=== PATIENT | male | born 1985 | race American Indian/Alaskan Native ===

== ENCOUNTER 2017-12-29 21:27 | Inpatient (IN) | payer OTHER ==
[2017-12-29 21:55] VITALS: O2SAT 98
--- NOTE | 2017-12-29 22:12 | C.PDOC ---
History Of Present Illness 32 year old male presents to the ER as a transfer accepted for psychiatric admission for depression. Denies any complaints at this time. Time Seen by Provider: 12/29/17 21:29 Chief Complaint (Nursing): Psychiatric Evaluation History Per: Other ([facility]) History/Exam Limitations: no limitations Onset/Duration Of Symptoms: Days Current Symptoms Are (Timing): Still Present Modifying Factor(s): None Severity: None Associated Symptoms: Depression Involuntary Hold By: None Recent travel outside of the [place]: No Past Medical History Reviewed: Historical Data, Nursing Documentation, Vital Signs Vital Signs: Last Vital Signs Temp 98.8 F 12/29/17 21:45 Pulse 66 12/29/17 21:45 Resp 22 12/29/17 21:45 BP 113/74 12/29/17 21:45 Pulse Ox 98 12/29/17 21:45 - Medical History PMH: Depression Denies: Chronic Kidney Disease Family History: States: Unknown Family Hx - Social History Hx Alcohol Use: Yes Hx Substance Use: Yes - Immunization History Hx Tetanus Toxoid Vaccination: No Hx Influenza Vaccination: No Hx Pneumococcal Vaccination: No Review Of Systems Constitutional: Negative for: Fever, Chills Cardiovascular: Negative for: Chest Pain, Palpitations Respiratory: Negative for: Cough, Shortness of Breath Gastrointestinal: Negative for: Nausea, Vomiting Neurological: Negative for: Weakness, Numbness Psych: Positive for: Depression Physical Exam - Physical Exam Appears: Non-toxic Skin: Normal Color, Warm, Dry Head: Atraumatic, Normacephalic Eye(s): bilateral: Normal Inspection Oral Mucosa: Moist Neck: Normal, Supple Chest: Symmetrical, No Tenderness Cardiovascular: Rhythm Regular Respiratory: Normal Breath Sounds, No Rales, No Rhonchi, No Wheezing Gastrointestinal/Abdominal: Soft, No Tenderness Neurological/Psych: Oriented x3, Normal Speech ED Course And Treatment O2 Sat by Pulse Oximetry: 98 (Room air) Pulse Ox Interpretation: Normal Medical Decision Making Medical Decision Making: mediclaly cleared and accpeted prior to arrival. no current medical complaint Disposition - Disposition Disposition: HOSPITALIZED Disposition Time: 22:00 Condition: STABLE - Clinical Impression Clinical Impression: Depression - Scribe Statement The provider has reviewed the documentation as recorded by the Scribe Brent Torre All medical record entries made by the Scribe were at my direction and personally dictated by me. I have reviewed the chart and agree that the record accurately reflects my personal performance of the history, physical exam, medical decision making, and the department course for this patient. I have also personally directed, reviewed, and agree with the discharge instructions and disposition. Decision To Admit - Pt Status Changed To: Hospital Disposition Of: Inpatient - Admit Certification Admit to Inpatient:: After my assessment, the patient will require hospitalizat ion for at least two midnights. This is because of the severity of symptoms shown, intensity of services needed, and/or the medical risk in this patient being treated as an outpatient. - InPatient: Physician Admission Certification: I certify that this patient requires 2 or more midnights of care for the following reason:: depressed - . Bed Request Type: Psychiatry Admitting Physician: Judson Lemus Patient Diagnosis: Depression
--- NOTE | 2017-12-29 22:46 | PCM.BM ---
<Glenny Segovia - Last Filed: 12/29/17 22:44> Treatment Plan Problems - Problems identified on initial assessmt Depression Date Initiated: 12/29/17 Time Initiated: 22:45 Assessment reference: NA Status: Active Substance Abuse Date Initiated: 12/29/17 Time Initiated: 22:45 Assessment reference: NA Status: Active Treatment assets and liabiliti Patient Assests: adapts well, cooperative, educated, self-reliant, ADL independent, physically healthy, negotiates basic needs, cognitively intact Patient Liabilities: live alone (Homeless), financial problems, substance abuse (PCP, THC), medical problems (None) - Milieu Protocol Maintain good personal hygiene: daily Encourage regular showers, daily Remind patient to perform daily oral care, daily Assist patient to perform ADL's (Self) Conduct patient checks and document Observation sheet: Q15 minutes (Safety) Maintain personal safety: every shift Educate patient to report safety concerns to staff, every shift Monitor environment for contraband/sharps Medication safety: Monitor for expected outcome, potential side effects: every shift, Assess barriers to learning: every shift, Assess readiness for medication education: every shift <Donna Kelly - Last Filed: 01/02/18 14:26> Family Contact Family involvement: Family/SO is involved Family contact: Patient agrees to contact, Family has been contacted by patient - Goals for Treatment Patient goals for treatment: "I want to go to a rehab program." Discharge/Continuing Care - Education Needs Education Needs: Patient Medication, Patient Diagnosis/Disease Process, Patient Coping Skills, Patient Placement options, Patient Community resources - Discharge Discharge Criteria: Free of Suicidal thoughts, Free of Homicidal thoughts, Free of paranoid thoughts, Normal sleep pattern, Ability to care for self, No longer exhibiting s/s of withdrawal, Reduction of target symptoms Discharge to:: Substance Abuse Rehab - Treatment Team Participation Discussed with Family/SO: No Was Patient/Family/SO present at Treatment Team Meeting: Yes <Sherice Araujo - Last Filed: 01/05/18 12:51> - Diagnosis (1) Depression Status: Acute Interventions: 01/02/18 12:51 * Assess/adjust medications daily and /or as needed * See patient on an individual basis 7x/week to assess symptoms of depression * Monitor for side effects & effectiveness of medications *
--- NOTE | 2017-12-30 10:47 | PCM.PSYCH ---
Initial Psychiatric Evaluation - Initial Psychiatric Evaluation Type of Admission: Voluntary Legal Status: Capacity Chief Complaint (in patient's own words): I was feeling depressed and suicidal.' History of Present Illness and Precipitating Events: Patient is a 30 years old -[place] male, who is currently unemployed and homeless, went to the [facility] with depressed mood and suicidal ideation and homicidal ideation. The patient was transferred to the [facility] for the continuation of care. He remained superficially cooperative but guarded about the details. Patient reports that he is feeling increasingly depressed and suicidal. Per hospital charts, he claimed that" if he had a knife and gun, he would stab and shoot anyone infront of him." Patient reports history of few inpatient psychiatric hospitalizations. However he denies history of follow-up with psychiatrist. He reports history of suicidal ideation in the past but denies attempt. As per him, he abused few tab of Ecstacy. He also reports of drinking a few shots of vodka daily. As per him, he started hearing voices and became increasingly depressed and came to the hospital to get help. He reports depressed mood and feelings of hopelessness and helplessness. He reports at times irritability and agitation. He reports auditory hallucinations but denies any visual hallucinations. Denies any drinking and other other drug abuse. PMH Non reported Current Medications: Active Medications Generic Name Dose Route Start Last Admin Trade Name Freq PRN Reason Stop Dose Admin Hydroxyzine HCl 25 mg 12/29/17 23:19 Atarax PO Q6 PRN Anxiety Past Psychiatric History - Past Psychiatric History Previous Treatment History: None Pertinent Medical Hx (Current Medical&Sleep Prob, Allergies): Allergies Allergy/AdvReac Type Severity Reaction Status Date / Time No Known Allergies Allergy Verified 12/29/17 21:56 No Known Home Med 12/29/17 Review of Systems - Review of Systems All systems: reviewed and no additional remarkable complaints except - Psychiatric Psychiatric: Anxiety, Irritability, Suicidal Ideation Mental Status Examination - Personal Presentation Personal Presentation: Looks stated age - Affect Affect: Constricted, Depressed - Motor Activity Motor Activity: Calm - Reliability in Providing Information Reliability in Providing Information: Fair - Speech Speech: Organized - Mood Mood: Depressed, Anxious - Formal Thought Process Formal Thought Process: Hallucinations, Delusions, Paranoia - Obsessions/Compulsions Obsessions: No Compulsions: No - Cognitive Functions Orientation: Person, Place, Situation, Time Sensorium: Alert Attention/Concentration: Attentive Abstract Thinking: [place] Estimate of Intelligence: Below average Judgement: Imparied, as evidence by: Poor judgement, Imparied, as evidence by: Lack of insight into illness - Risk Risk: Suicidal, Diminished functioning - Limitations Limitations: Living alone DSM 5 DX - DSM 5 DSM 5 Diagnosis: Bipolar disorder MRE depressed severe with psychotic features Ecstasy use disorder moderate Alcohol use disorder moderate - Recommended/Plan of Treatment Treatment Recommendations and Plan of Treatment: Bipolar disorder MRE depressed severe with psychotic features CBT Psychoeducation Supportive therapy, group therapy, individual therapy Trazodone 100 mg by mouth daily at bedtime Hydroxyzine 25 mg by mouth every 6 hours when necessary Depakote 500 mg by mouth twice a day Ecstasy use disorder moderate Monitor signs and symptoms Use [place] for abstinence Alcohol use disorder moderate Monitor signs and symptoms Use LA for abstinence - Smoking Cessation Smoking Cessation Initiated: No
[2017-12-30] MEDS: Divalproex 250 mg DR Tab PO SCH ×2 (11:42→17:16)
--- NOTE | 2017-12-31 10:30 | PCM.PYCHPN ---
Psychiatric Progress Note - Psychiatric Progress Note Patient seen today, length of contact: 15 min Patient Chief Complaint: I'm still feeling down.' Problems Identified/Issues Discussed: Patient seen and evaluated, chart reviewed and discussed with the nurse. Patient reports depressed mood and at times feelings of hopelessness and helplessness. As per the staff patient remained isolated and withdrawn. Patient still reports persecutory delusions and auditory hallucinations. He is taking the medications and denies any side effects. Symptoms are improving and she needs more time for stabilization Supportive therapy and psychoeducation were given. Medication Change: Yes Medical Record Reviewed: Yes Mental Status Examination - Cognitive Function Orientation: Person, Place, Situation, Time Memory: Intact Attention: WNL Concentration: Poor Association: WNL Fund of Knowledge: Poor - Mood Mood: Depressed, Anxious - Affect Affect: Constricted, Depressed - Speech Speech: Soft - Formal Thought Process Formal Thought Process: No Impairment - Suicidal Ideation Suicidal Ideation: No - Homicidal Ideation Homicidal Ideation: No Goal/Treatment Plan - Goal/Treatment Plan Need for Continued Stay: Severe depression anxiety, Severe functional impairment Progress Toward Problem(s) and Goals/Treatment Plan: Bipolar disorder MRE depressed severe with psychotic features CBT Psychoeducation Supportive therapy, group therapy, individual therapy Trazodone 100 mg by mouth daily at bedtime Hydroxyzine 25 mg by mouth every 6 hours when necessary Depakote 500 mg by mouth twice a day Ecstasy use disorder moderate Monitor signs and symptoms Use [place] for abstinence Alcohol use disorder moderate Monitor signs and symptoms Use [place] for abstinence - Smoking Cessation Smoking Cessation Initiated: No
[2017-12-31] MEDS: Divalproex 250 mg DR Tab PO SCH ×2 (10:35→17:20)
[2018-01-01] MEDS: Divalproex 250 mg DR Tab PO SCH ×2 (10:01→17:41)
--- NOTE | 2018-01-01 14:12 | PCM.PYCHPN ---
Psychiatric Progress Note - Psychiatric Progress Note Patient seen today, length of contact: 15 min Patient Chief Complaint: I'm feeling little better.' Problems Identified/Issues Discussed: Patient seen and evaluated, chart reviewed and discussed with the nurse. Patient reports some improvement in his mood mood and feelings of hopelessness and helplessness. As per the staff patient remained isolated and withdrawn. Patient reports some improvement in his paranoia and auditory hallucinations. He is taking the medications and denies any side effects. Symptoms are improving and he needs more time for stabilization Supportive therapy and psychoeducation were given. Medication Change: Yes Medical Record Reviewed: Yes Mental Status Examination - Cognitive Function Orientation: Person, Place, Situation, Time Memory: Intact Attention: WNL Concentration: Poor Association: WNL Fund of Knowledge: Poor - Mood Mood: Depressed, Anxious - Affect Affect: Constricted, Depressed - Speech Speech: Soft - Formal Thought Process Formal Thought Process: No Impairment - Suicidal Ideation Suicidal Ideation: No - Homicidal Ideation Homicidal Ideation: No Goal/Treatment Plan - Goal/Treatment Plan Need for Continued Stay: Severe depression anxiety, Severe functional impairment Progress Toward Problem(s) and Goals/Treatment Plan: Bipolar disorder MRE depressed severe with psychotic features CBT Psychoeducation Supportive therapy, group therapy, individual therapy Trazodone 100 mg by mouth daily at bedtime Hydroxyzine 25 mg by mouth every 6 hours when necessary Depakote 500 mg by mouth twice a day Ecstasy use disorder moderate Monitor signs and symptoms Use [place] for abstinence Alcohol use disorder moderate Monitor signs and symptoms Use [place] for abstinence
[2018-01-02] MEDS: Divalproex 250 mg DR Tab PO SCH (09:43)
--- NOTE | 2018-01-02 14:28 | PCM.PYCHPN ---
Psychiatric Progress Note - Psychiatric Progress Note Patient seen today, length of contact: 15 min Patient Chief Complaint: "I'm better" Problems Identified/Issues Discussed: The pt is seen, chart reviewed, case discussed with staff. Support and psychoeducation given, CBT and FL used briefly No new symptoms reported, improving slowly Depakote stopped (no need) - will only use seroquel He agreed No haldol prn - he is a calm patient No SEs from medications, risks discussed. After care discussed Medication Change: Yes (see hpi) Medical Record Reviewed: Yes Mental Status Examination - Cognitive Function Orientation: Person, Place, Situation, Time Memory: Intact Attention: WNL Concentration: WNL Association: WNL Fund of Knowledge: Poor - Mood Mood: Depressed, Anxious - Affect Affect: Constricted, Depressed - Speech Speech: Soft - Formal Thought Process Formal Thought Process: No Impairment - Suicidal Ideation Suicidal Ideation: No - Homicidal Ideation Homicidal Ideation: No Goal/Treatment Plan - Goal/Treatment Plan Need for Continued Stay: Severe depression anxiety, Severe functional impairment Progress Toward Problem(s) and Goals/Treatment Plan: Continue medications Support and psychoeducation daily Attend groups and activities daily After care planning by RADHA
[2018-01-02] MEDS ORDERED: Pneumococcal 23-Valent Vaccine IM ONE (16:00)
[2018-01-02] MEDS ORDERED: Influenza Vaccine 60 MCG/0.5 ML SYR (3 yr & up) IM ONE (16:00)
[2018-01-02] MEDS: Benzocaine/Menthol (Cepacol) Lozenge MT PRN (21:06)
[2018-01-03] MEDS: guaiFENesin 200 mg/10 ml Syrup UD PO PRN ×2 (11:53→18:44)
[2018-01-03] MEDS: Benzocaine/Menthol (Cepacol) Lozenge MT PRN ×2 (11:54→18:44)
--- NOTE | 2018-01-03 13:19 | PCM.PYCHPN ---
Psychiatric Progress Note - Psychiatric Progress Note Patient seen today, length of contact: 15 min Patient Chief Complaint: "I'm better" Problems Identified/Issues Discussed: The pt is seen, chart reviewed, case discussed with staff. Support and psychoeducation given, CBT and [place] used briefly No new symptoms reported, improving slowly Depakote stopped (no need) - will only use seroquel He agreed No haldol prn - he is a calm patient No SEs from medications, risks discussed. After care discussed Medication Change: Yes (see hpi) Medical Record Reviewed: Yes Mental Status Examination - Cognitive Function Orientation: Person, Place, Situation, Time Memory: Intact Attention: WNL Concentration: WNL Association: WNL Fund of Knowledge: Poor - Mood Mood: Depressed, Anxious - Affect Affect: Constricted, Depressed - Speech Speech: Soft - Formal Thought Process Formal Thought Process: No Impairment - Suicidal Ideation Suicidal Ideation: No - Homicidal Ideation Homicidal Ideation: No Goal/Treatment Plan - Goal/Treatment Plan Need for Continued Stay: Severe depression anxiety, Severe functional impairment Progress Toward Problem(s) and Goals/Treatment Plan: Continue medications Support and psychoeducation daily Attend groups and activities daily After care planning by RADHA
[2018-01-04] MEDS: guaiFENesin 200 mg/10 ml Syrup UD PO PRN ×2 (17:26→21:24)
[2018-01-04] MEDS: Benzocaine/Menthol (Cepacol) Lozenge MT PRN (17:26)
--- NOTE | 2018-01-04 23:44 | PCM.PYCHPN ---
Psychiatric Progress Note - Psychiatric Progress Note Patient seen today, length of contact: 15 min Patient Chief Complaint: I have sore throat. Otherwise I'm feeling better. Problems Identified/Issues Discussed: Patient seen, chart reviewed, case discussed with the staff. Issues related to illness and treatment were discussed with the patient and staff. Reported compliant with treatment with no adverse effects. Tolerating treatment very well. Reported having sore throat but otherwise feeling better. Awake, alert and oriented x3. Calm and cooperative with good eye contact. Mood reported as depressed. Affect appropriate. Treatment discussed with the patient. Needs more time for stabilization. Aftercare discussed with the patient. Denied any delusions, auditory or visual hallucinations, suicidal ideations or homicidal ideations at the time of evaluation. Medical Problems: None reported Diagnostic Results: Reviewed DSM 5 Symptoms Update: Some improvement with treatment Medication Change: No Medical Record Reviewed: Yes Mental Status Examination - Cognitive Function Orientation: Person, Place, Situation, Time Memory: Intact Attention: WNL Concentration: WNL Association: WNL Fund of Knowledge: [facility] Decription of patient's judgement and insights: Fair - Mood Mood: Depressed (Much less than before) - Affect Affect: Other (Appropriate) - Speech Speech: Soft - Formal Thought Process Formal Thought Process: No Impairment Psychotic Thoughts and Behaviors: None - Suicidal Ideation Suicidal Ideation: No - Homicidal Ideation Homicidal Ideation: No Goal/Treatment Plan - Goal/Treatment Plan Need for Continued Stay: Remain at risks for inpatient hospitalization, Discharge may exacerbated symptoms, Severe functional impairment Progress Toward Problem(s) and Goals/Treatment Plan: Improving with treatment. Patient/staff education. Supportive therapy. Continue treatment as before. Estimated Date of D/C: 01/06/18 - Smoking Cessation Smoking Cessation Initiated: No
[2018-01-05 09:45] VITALS: RESP 20
[2018-01-05] MEDS: guaiFENesin 200 mg/10 ml Syrup UD PO PRN (21:18)
--- NOTE | 2018-01-05 21:26 | PCM.PYCHPN ---
Psychiatric Progress Note - Psychiatric Progress Note Patient seen today, length of contact: 15 min Patient Chief Complaint: I'm feeling little better. Problems Identified/Issues Discussed: Patient seen, chart reviewed, case discussed with the staff. Issues related to illness and treatment were discussed with the patient and staff. Reported compliant with treatment with no adverse effects. Tolerating treatment very well. Reported feeling little better. He also has less sore throat. Awake, alert and oriented x3. Calm and cooperative with good eye contact. Mood reported as less depressed. Affect appropriate. Treatment discussed with the patient. Needs more time for stabilization. Aftercare discussed with the patient. Denied any delusions, auditory or visual hallucinations, suicidal ideations or homicidal ideations at the time of evaluation. Medical Problems: None reported Diagnostic Results: Reviewed DSM 5 Symptoms Update: Some improvement with treatment Medication Change: No Medical Record Reviewed: Yes Mental Status Examination - Cognitive Function Orientation: Person, Place, Situation, Time Memory: Intact Attention: WNL Concentration: WNL Association: WNL Fund of Knowledge: WN Decription of patient's judgement and insights: Fair - Mood Mood: Depressed (Much less depressed) - Affect Affect: Other (Appropriate) - Speech Speech: Appropriate - Formal Thought Process Formal Thought Process: No Impairment Psychotic Thoughts and Behaviors: None - Suicidal Ideation Suicidal Ideation: No - Homicidal Ideation Homicidal Ideation: No Goal/Treatment Plan - Goal/Treatment Plan Need for Continued Stay: Remain at risks for inpatient hospitalization, Discharge may exacerbated symptoms, Severe functional impairment Progress Toward Problem(s) and Goals/Treatment Plan: Some improvement with treatment. Patient education. Supportive therapy. Continue treatment as before. [facility] a [facility] after discharge from the hospital for follow-up care. Estimated Date of D/C: 01/06/18 - Smoking Cessation Smoking Cessation Initiated: No
[2018-01-06 00:36] VITALS: BP 122/82
[2018-01-06 08:26] VITALS: PULSE 80; TEMP 98.6
--- NOTE | 2018-01-06 16:42 | PCM.PYCHDC ---
Mental Status Examination - Mental Status Examination Orientation: Person, Place, Situation, Time Memory: Intact Mood: Neutral Affect: Other (Appropriate) Speech: Appropriate Attention: WNL Concentration: WNL Association: WNL Fund of Knowledge: WNL Formal Thought Process: No Impairment Description of patient's judgement and insight: Good Psychotic Thoughts and Behaviors: None Suicidal Ideation: No Current Homicidal Ideation?: No Discharge Summary - Discharge Note Reason for Hospitalization: Bipolar disorder depressed with psychotic features Ectasy use disorder Alcohol use disorder Laboratory Data: Reviewed Consultations:: List each consultation separately and include: 1. Reason for request. 2. Findings. 3. Follow-up Summary of Hospital Course include:: 1. Description of specific treatment plan utilized for patients during their course of treatmen. 2. Summarize the time- course for resolution of acute symptoms and/or regressed behaviors. 3. Describe issues identified and worked on during hospitalization. 4. Describe medication utilized. 5. Describe medical problems identified and treated. 6. Reassessment of suicide risk Summary of Hospital Course: Patient is a 30 years old -[place] male, who is currently unemployed and homeless, went to the [facility] with depressed mood and suicidal ideation and homicidal ideation. The patient was transferred to the [facility] for the continuation of care. He remained superficially cooperative but guarded about the details. Patient reports that he is feeling increasingly depressed and suicidal. Per hospital charts, he claimed that" if he had a knife and gun, he would stab and shoot anyone infront of him." Patient reports history of few inpatient psychiatric hospitalizations. However he denies history of follow-up with psychiatrist. He reports history of suicidal ideation in the past but denies attempt. As per him, he abused few tab of Ecstacy. He also reports of drinking a few shots of vodka daily. As per him, he started hearing voices and became increasingly depressed and came to the hospital to get help. He reports depressed mood and feelings of hopelessness and helplessness. He reports at times irritability and agitation. He reports auditory hallucinations but denies any visual hallucinations. Denies any drinking and other other drug abuse. PMH Non reported During his stay in the hospital, patient was treated with Depakote, Seroquel, trazodone and other when necessary medications. Patient was attending groups and other activities on the unit. With above treatment patient started feeling better. Today patient was stable and ready for discharge. At the time of evaluation and discharge, patient was calm and cooperative, awake, alert and oriented 3, had no delusions, no auditory or visual hallucinations, no suicidal ideations or homicidal ideations. Patient was discharged in a stable condition. - Final Diagnosis (DSM 5) Condition upon Discharge: STABLE Disposition: HOME/ ROUTINE Follow-up Treatment Plan: Patient will go to a shelter rehabilitation for follow-up care after discharge from the hospital. Prescriptions/Medication Reconciliation: QUEtiapine [Seroquel] 100 mg PO HS #30 tab traZODone [Desyrel] 100 mg PO HS PRN #30 tab PRN Reason: Insomnia - Smoking Cessation Smoking Cessation Medication prescribed: No - Antipsychotic Medications Pt discharged on 2 or more routine antipsychotic medications: No
== END 2018-01-06 10:46 | disposition home or self-care (01) | DRG 753 ==
LOC: C.ER 21:27 → C.5E 22:03
PROVIDERS: ADMIT Psychiatry & Neurology Psychiatry; ATTEND Psychiatry & Neurology Psychiatry
PROC: GZHZZZZ Group Psychotherapy (ICD-10-PCS; principal; 2017-12-29)
PROC: GZ56ZZZ Individual Psychotherapy, Supportive (ICD-10-PCS; 2017-12-29)
DX: F31.5 Bipolar disorder, current episode depressed, severe, with psychotic features (principal); R45.851 Suicidal ideations; F10.10 Alcohol abuse, uncomplicated; Z59.0 Homelessness

== ENCOUNTER 2018-01-10 22:46 | Emergency (ER) | payer SELFPAY ==
--- NOTE | 2018-01-10 23:32 | C.PDOC ---
History Of Present Illness 32 y/o male pt presents to the ER complaining of depression and paranoia. Pt denies SI/HI. Time Seen by Provider: 01/10/18 23:31 Chief Complaint (Nursing): Psychiatric Evaluation History Per: Patient History/Exam Limitations: no limitations Onset/Duration Of Symptoms: Days Current Symptoms Are (Timing): Still Present Suicide/Self Injury Attempted (Context): None Associated Symptoms: Depression, Paranoia Involuntary Hold By: None Recent travel outside of the [place]: No Past Medical History Reviewed: Historical Data, Nursing Documentation, Vital Signs Vital Signs: Last Vital Signs Temp 98.8 F 01/10/18 22:56 Pulse 104 H 01/10/18 22:56 Resp 20 01/10/18 22:56 BP 137/90 01/10/18 22:56 Pulse Ox 97 01/10/18 22:56 - Medical History PMH: Depression - [facility] Procedures GROUP PSYCHOTHERAPY (12/29/17) INDIVIDUAL PSYCHOTHERAPY, SUPPORTIVE (12/29/17) Family History: States: Unknown Family Hx - Social History Hx Alcohol Use: Yes (Socially) Hx Substance Use: Yes (Ecstacy) - Immunization History Hx Tetanus Toxoid Vaccination: No Hx Influenza Vaccination: No Hx Pneumococcal Vaccination: No Review Of Systems Psych: Positive for: Depression, Other (paranoia; no homicidal ideation ). Negative for: Suicidal ideation Physical Exam - Physical Exam Appears: Non-toxic, No Acute Distress Skin: Warm, Dry Head: Normacephalic Eye(s): bilateral: Normal Inspection Oral Mucosa: Moist Chest: Symmetrical Cardiovascular: Rhythm Regular Respiratory: Normal Breath Sounds Extremity: Bilateral: Normal Color And Temperature Neurological/Psych: Oriented x3, Normal Speech Gait: Steady ED Course And Treatment - Laboratory Results Result Diagrams: 01/11/18 02:21 01/11/18 02:21 ECG: Interpreted By Me, Viewed By Me ECG Rhythm: Sinus Rhythm (81), Nonspecific Changes (lvh) O2 Sat by Pulse Oximetry: 97 (RA) Pulse Ox Interpretation: Normal - Radiology CXR: Interpreted by Me, Viewed By Me CXR Interpretation: No: Infiltrates, Fracture, Pnemothorax Progress Note: Impression: depression and paranoia. Plans: -- EKG. -- chem labs. -- blood work. -- CXR. -- UA Disposition Counseled Patient/Family Regarding: Studies Performed, Diagnosis - Disposition Disposition Time: 23:32 Condition: FAIR Forms: [facility] (Malay) - Clinical Impression Clinical Impression: Major depression - Scribe Statement The provider has reviewed the documentation as recorded by the Scribe Stacy Zamarripa Provider Attestation: All medical record entries made by the Scribe were at my direction and perso gregorio dictated by me. I have reviewed the chart and agree that the record accurately reflects my personal performance of the history, physical exam, medical decision making, and the department course for this patient. I have also personally directed, reviewed, and agree with the discharge instructions and disposition. Physician Patient Turnover Patient Signed Over To: Katharina Pineda Handoff Comments: pending transfer to [facility]
[2018-01-11 02:25] LABS: BASO # 0.1 K/uL (0.0-0.2); BASO % 0.9 % (0.0-2.0); EOS % 0.4 % (0.0-4.0); LYMPH # 2.4 K/uL (1.0-4.3); LYMPH % 31.6 % (20.0-40.0); MEAN CELL VOLUME 93.8 fL (80.0-94.0); MEAN CORPUSCULAR HEMOGLOBIN 32.1 pg (27.0-31.0); MEAN CORPUSCULAR HGB CONC 34.3 g/dL (33.0-37.0); MEAN PLATELET VOLUME 8.1 fL (7.2-11.7); MONO # 0.5 K/uL (0.0-0.8); MONO % 6.7 % (0.0-10.0); NEUT # 4.6 K/uL (1.8-7.0); NEUT % 60.4 % (50.0-75.0); NRBC % 0.1 % (0.0-2.0); RBC 4.34 Mil/uL (4.40-5.90); RED CELL DISTRIBUTION WIDTH 13.1 % (11.5-14.5); WHITE BLOOD COUNT 7.7 K/uL (4.8-10.8)
[2018-01-11 02:36] LABS: ALB/GLOB RATIO 1.2 (1.0-2.1); ALBUMIN 4.3 g/dL (3.5-5.0); ALT/SGPT 47 U/L (21-72); AST/SGOT 31 U/L (17-59); BLOOD UREA NITROGEN 18 mg/dL (9-20); CALCIUM 9.2 mg/dl (8.6-10.4); GFR NON-AFRICAN AMERICAN > 60
[2018-01-11 03:48] LABS: SQUAMOUS EPITHIAL < 1 /hpf (0-5); URINE BACTERIA OCC (<OCC); URINE BILIRUBIN NEGATIVE (NEGATIVE); URINE BLOOD NEGATIVE (NEGATIVE); URINE CLARITY Clear (Clear); URINE COLOR Yellow (YELLOW); URINE GLUCOSE (UA) NORMAL (Normal); URINE LEUKOCYTE ESTERASE NEG Leu/uL (Negative); URINE PROTEIN NEGATIVE (NEGATIVE); URINE UROBILINOGEN NORMAL mg/dL (0.2-1.0)
[2018-01-11 03:59] LABS: BARBITURATES, UR NEGATIVE (NEGATIVE); BENZODIAZEPINES, UR NEGATIVE (NEGATIVE); OPIATES, UR NEGATIVE (NEGATIVE); PHENCYCLIDINE, UR NEGATIVE (NEGATIVE)
[2018-01-11 09:25] VITALS: BP 126/73; PULSE 79; RESP 18; TEMP 98; O2SAT 98
--- NOTE | 2018-01-11 12:54 | RAD ---
Date of service: 01/11/2018 PROCEDURE: CHEST RADIOGRAPH, 1 VIEW HISTORY: Detox/Psy COMPARISON: None available. FINDINGS: LUNGS: Clear. PLEURA: No pneumothorax or pleural fluid seen. CARDIOVASCULAR: No aortic atherosclerotic calcification present. Normal. OSSEOUS STRUCTURES: No significant abnormalities. VISUALIZED UPPER ABDOMEN: Normal. OTHER FINDINGS: None. IMPRESSION: No active disease.
--- NOTE | 2018-01-14 18:03 | CARD ---
APPROVED REPORT Date of service: 01/11/2018 EKG Measurement Heart [id number] <Conclusion> Normal sinus rhythm Possible Left atrial enlargement Left ventricular hypertrophy Cannot rule out Septal infarct, age undetermined Abnormal ECG
== END 2018-01-11 09:46 | disposition short-term general hospital (02) ==
LOC: C.ER 22:46
DX: F32.9 Major depressive disorder, single episode, unspecified (principal)
CPT/HCPCS: 71045; 80053; 81001; 83735; 84100; 85025; 93005; 99285; G0480

== ENCOUNTER 2018-01-21 23:51 | Emergency (ER) | payer SELFPAY ==
[2018-01-21 23:51] VITALS: BMI 24.4
[2018-01-22 00:02] VITALS: RESP 20
--- NOTE | 2018-01-22 00:42 | C.PDOC ---
History Of Present Illness 32 year old male presents to the ED for evaluation of feeling depressed. Patient had recent admissions for same and was also seen at [facility]. Patient denies SI/HI, hallucinations, injury, fall, trauma. Time Seen by Provider: 01/22/18 00:42 Chief Complaint (Nursing): Psychiatric Evaluation History Per: Patient History/Exam Limitations: no limitations Onset/Duration Of Symptoms: Days Current Symptoms Are (Timing): Still Present Suicide/Self Injury Attempted (Context): None Modifying Factor(s): None Associated Symptoms: Depression. denies: Suicidal Thoughts, Suicidal Plan Recent travel outside of the [place]: No Additional History Per: Patient Past Medical History Reviewed: Historical Data, Nursing Documentation, Vital Signs Vital Signs: Last Vital Signs Temp 98.1 F 01/21/18 23:56 Pulse 85 01/21/18 23:56 Resp 20 01/21/18 23:56 BP 152/94 H 01/21/18 23:56 Pulse Ox 99 01/21/18 23:56 - Medical History PMH: Depression, Seizures Denies: Diabetes, Hepatitis, HIV, HTN, Chronic Kidney Disease, Sexually Transmitted Disease Surgical History: No Surg Hx - [facility] Procedures GROUP PSYCHOTHERAPY (12/29/17) INDIVIDUAL PSYCHOTHERAPY, SUPPORTIVE (12/29/17) MEDICATION MANAGEMENT (01/11/18) Family History: States: Unknown Family Hx - Social History Hx Alcohol Use: Yes Hx Substance Use: Yes - Immunization History Hx Tetanus Toxoid Vaccination: No Hx Influenza Vaccination: No Hx Pneumococcal Vaccination: No Review Of Systems Constitutional: Negative for: Fever, Chills Eyes: Negative for: Vision Change Cardiovascular: Negative for: Chest Pain Respiratory: Negative for: Shortness of Breath Gastrointestinal: Negative for: Nausea, Vomiting, Abdominal Pain Skin: Negative for: Rash Psych: Positive for: Depression. Negative for: Suicidal ideation Physical Exam - Physical Exam Appears: Non-toxic, No Acute Distress Skin: Warm, Dry Head: Normacephalic Eye(s): bilateral: Normal Inspection Neck: Supple Chest: Symmetrical Cardiovascular: Rhythm Regular Respiratory: No Rales, No Rhonchi, No Wheezing Gastrointestinal/Abdominal: Soft, No Tenderness, No Guarding, No Rebound Extremity: Bilateral: Atraumatic, Normal Color And Temperature, Normal ROM Neurological/Psych: Oriented x3, Normal Speech, Normal Cognition Gait: Steady ED Course And Treatment - Laboratory Results Result Diagrams: 01/22/18 01:31 01/22/18 01:31 O2 Sat by Pulse Oximetry: 99 (ON RA) Pulse Ox Interpretation: Normal Progress Note: Plan: - Labs. - UA. - Crisis. P3:47 AM Pt was cleared for discharge to home by dr Araujo Disposition Counseled Patient/Family Regarding: Studies Performed, Diagnosis, Need For Followup - Disposition Disposition: HOME/ ROUTINE Disposition Time: 00:42 Condition: FAIR Additional Instructions: Please follow up at [facility] as per crisis' and dr Araujo's recommendations Instructions: Anxiety, Adult (DC) Forms: [employer] (Luxembourgish) - Clinical Impression Clinical Impression: Anxiety disorder, unspecified - Scribe Statement The provider has reviewed the documentation as recorded by the Scribe Osmel Shelby All medical record entries made by the Scribe were at my direction and personally dictated by me. I have reviewed the chart and agree that the record accurately reflects my personal performance of the history, physical exam, medical decision making, and the department course for this patient. I have also personally directed, reviewed, and agree with the discharge instructions and disposition.
[2018-01-22 01:38] LABS: BASO % 0.4 % (0.0-2.0); EOS % 0.6 % (0.0-4.0); HEMOGLOBIN 13.2 g/dL (12.0-18.0); LYMPH % 37.3 % (20.0-40.0); MEAN CELL VOLUME 94.1 fL (80.0-94.0); MEAN CORPUSCULAR HEMOGLOBIN 31.2 pg (27.0-31.0); MEAN CORPUSCULAR HGB CONC 33.2 g/dL (33.0-37.0); MEAN PLATELET VOLUME 7.7 fL (7.2-11.7); MONO # 0.5 K/uL (0.0-0.8); MONO % 6.2 % (0.0-10.0); NEUT # 4.5 K/uL (1.8-7.0); NEUT % 55.5 % (50.0-75.0); NRBC % 0.1 % (0.0-2.0); RBC 4.24 Mil/uL (4.40-5.90); RED CELL DISTRIBUTION WIDTH 13.3 % (11.5-14.5); WHITE BLOOD COUNT 8.1 K/uL (4.8-10.8)
[2018-01-22 01:52] LABS: ALB/GLOB RATIO 1.3 (1.0-2.1); ALT/SGPT 27 U/L (21-72); AST/SGOT 30 U/L (17-59); BLOOD UREA NITROGEN 11 mg/dL (9-20); CALCIUM 8.9 mg/dl (8.6-10.4); GFR NON-AFRICAN AMERICAN > 60
[2018-01-22 01:53] LABS: URINE BILIRUBIN NEGATIVE (NEGATIVE); URINE BLOOD NEGATIVE (NEGATIVE); URINE CLARITY Clear (Clear); URINE COLOR Yellow (YELLOW); URINE GLUCOSE (UA) NORMAL (Normal); URINE LEUKOCYTE ESTERASE NEG Leu/uL (Negative); URINE PROTEIN NEGATIVE (NEGATIVE)
[2018-01-22 01:58] LABS: BARBITURATES, UR NEGATIVE (NEGATIVE); BENZODIAZEPINES, UR NEGATIVE (NEGATIVE); OPIATES, UR NEGATIVE (NEGATIVE)
[2018-01-22 02:19] LABS: PHENCYCLIDINE, UR POSITIVE (NEGATIVE)
[2018-01-22 03:47] VITALS: BP 111/75; PULSE 60; TEMP 98.7
[2018-01-22 03:49] VITALS: O2SAT 99
== END 2018-01-22 06:05 | disposition home or self-care (01) ==
LOC: C.ER 23:51
DX: F41.9 Anxiety disorder, unspecified (principal)
CPT/HCPCS: 80053; 81001; 83735; 84100; 85025; 99283; G0480

== ENCOUNTER 2018-02-17 22:47 | Emergency (ER) | payer SELFPAY ==
[2018-02-17 22:47] VITALS: BMI 24.4
[2018-02-18 00:15] VITALS: RESP 20; TEMP 98
--- NOTE | 2018-02-18 02:34 | C.PDOC ---
History Of Present Illness 32 year old male brought in by EMS and police after being found intoxicated on a bus. Patient admits to marijuana use. Hyper somnolent, refuses to answer questions. Time Seen by Provider: 02/17/18 23:31 Chief Complaint (Nursing): Substance Abuse History Per: Patient, EMS History/Exam Limitations: no limitations Onset/Duration Of Symptoms: Hrs Current Symptoms Are (Timing): Still Present Suicide/Self Injury Attempted (Context): None Modifying Factor(s): Marijuana Recent travel outside of the [place]: No Past Medical History Reviewed: Historical Data, Nursing Documentation, Vital Signs Vital Signs: Last Vital Signs Temp 98 F 02/18/18 00:14 Pulse 71 02/18/18 00:14 Resp 20 02/18/18 00:14 BP 155/103 H 02/18/18 00:14 Pulse Ox 99 02/18/18 00:14 - Medical History PMH: Depression, Seizures Denies: Diabetes, Hepatitis, HIV, HTN, Chronic Kidney Disease, Sexually Transmitted Disease - [facility] Procedures GROUP PSYCHOTHERAPY (12/29/17) INDIVIDUAL PSYCHOTHERAPY, SUPPORTIVE (12/29/17) MEDICATION MANAGEMENT (01/11/18) Family History: States: Unknown Family Hx - Social History Hx Alcohol Use: Yes Hx Substance Use: Yes - Immunization History Hx Tetanus Toxoid Vaccination: No Hx Influenza Vaccination: No Hx Pneumococcal Vaccination: No Review Of Systems Constitutional: Negative for: Fever, Chills Cardiovascular: Negative for: Chest Pain, Palpitations Respiratory: Negative for: Cough, Shortness of Breath Gastrointestinal: Negative for: Nausea, Vomiting Neurological: Negative for: Weakness, Numbness Physical Exam - Physical Exam Appears: Non-toxic, Other (Hyper somnolent) Skin: Normal Color, Warm, Dry Head: Atraumatic, Normacephalic Eye(s): bilateral: Normal Inspection Oral Mucosa: Moist Neck: Normal, Supple Chest: Symmetrical, No Tenderness Cardiovascular: Rhythm Regular Respiratory: Normal Breath Sounds, No Rales, No Rhonchi, No Wheezing Gastrointestinal/Abdominal: Soft, No Tenderness Neurological/Psych: Oriented x3, Normal Speech ED Course And Treatment O2 Sat by Pulse Oximetry: 99 Progress Note: Woke up at 0300 sat up and ate sandwich then went back to sleep. Reevaluation Time: 02:33 Reassessment Condition: Improved Medical Decision Making Medical Decision Making: public intox prob marijuana per pt report sober @ d/c. Disposition Doctor Will See Patient In The: Office Counseled Patient/Family Regarding: Studies Performed, Diagnosis - Disposition Referrals: Alcoholics Anonymous [Outside] [employer] [facility] [Outside] [facility] [place] [Outside] [facility] [Outside] [facility] [employer] [Outside] Disposition: HOME/ ROUTINE Disposition Time: 02:33 Condition: GOOD Instructions: Drug Abuse and Drug Addiction (DC) Forms: [employer] (Mexican) - Clinical Impression Clinical Impression: Drug abuse - Scribe Statement The provider has reviewed the documentation as recorded by the Scribe Brent Torre All medical record entries made by the Scribe were at my direction and personally dictated by me. I have reviewed the chart and agree that the record accurately reflects my personal performance of the history, physical exam, medical decision making, and the department course for this patient. I have also personally directed, reviewed, and agree with the discharge instructions and disposition.
[2018-02-18 05:11] VITALS: BP 139/89; PULSE 78; O2SAT 97
== END 2018-02-18 05:09 | disposition home or self-care (01) ==
LOC: C.ER 22:47
DX: F19.10 Other psychoactive substance abuse, uncomplicated (principal)

== ENCOUNTER 2018-02-26 12:42 | Emergency (ER) | payer OTHER ==
[2018-02-26 13:00] VITALS: BMI 23.5
[2018-02-26 13:02] VITALS: TEMP 97.4
--- NOTE | 2018-02-26 14:28 | C.PDOC ---
History Of Present Illness 32 year old male with a history of alcohol and marijuana abuse presents to the emergency department with complaints of anxiety and feeling "like people are following him". Patient is requesting to speak to crisis due to a history of paranoia. Patient denies suicidal/homicidal ideation and hallucinations. Patient admits to drinking alcohol today but "only one beer". Patient also complains of right third finger pain from an injury he sustained three days ago, however he is unclear regarding the circumstances of the injury. At the time, patient reports he was treated at [facility], and was placed in a splint but has since lost the splint. Time Seen by Provider: 02/26/18 13:29 Chief Complaint (Nursing): Substance Abuse History Per: Patient History/Exam Limitations: no limitations Onset/Duration Of Symptoms: Hrs Current Symptoms Are (Timing): Still Present Suicide/Self Injury Attempted (Context): None Modifying Factor(s): Alcohol, Marijuana Associated Symptoms: Anxiety. denies: Suicidal Thoughts, Suicidal Plan, Other (homicidal ideation) Past Medical History Reviewed: Historical Data, Nursing Documentation, Vital Signs Vital Signs: Last Vital Signs Temp 97.4 F L 02/26/18 13:00 Pulse 96 H 02/26/18 13:00 Resp 18 02/26/18 13:00 BP 149/92 H 02/26/18 13:00 Pulse Ox 98 02/26/18 13:00 - Medical History PMH: Depression, Seizures Denies: Diabetes, Hepatitis, HIV, HTN, Chronic Kidney Disease, Sexually Transmitted Disease Surgical History: No Surg Hx - [facility] Procedures GROUP PSYCHOTHERAPY (12/29/17) INDIVIDUAL PSYCHOTHERAPY, SUPPORTIVE (12/29/17) MEDICATION MANAGEMENT (01/11/18) Family History: States: No Known Family Hx - Social History Hx Alcohol Use: Yes Hx Substance Use: Yes - Immunization History Hx Tetanus Toxoid Vaccination: No Hx Influenza Vaccination: No Hx Pneumococcal Vaccination: No Review Of Systems Except As Marked, All Systems Reviewed And Found Negative. Musculoskeletal: Positive for: Hand Pain (right third finger) Psych: Positive for: Anxiety. Negative for: Psychosis, Suicidal ideation Physical Exam - Physical Exam Appears: Non-toxic, No Acute Distress Skin: Warm, Dry Head: Normacephalic, Abrasion (old-appearing superficial abrasions to the face.) Eye(s): bilateral: PERRL, EOMI Nose: Normal Throat: Normal Lymphatic: No Adenopathy Chest: Symmetrical Cardiovascular: Rhythm Regular, No Murmur Respiratory: Normal Breath Sounds, No Rales Gastrointestinal/Abdominal: Soft, No Tenderness Back: Normal Inspection, No Paraspinal Tenderness Extremity: No Normal ROM (unable to active extend right third finger.), No Tenderness, Capillary Refill (< 2 seconds), Swelling (Edema of the right third finger PIP joint. ), Other (right third digit is in slight flexion at the PIP joint. ) Neurological/Psych: Oriented x3, Normal Speech, Normal Cognition, Other (mildly anxious affect.) Gait: Steady ED Course And Treatment O2 Sat by Pulse Oximetry: 98 (RA) Pulse Ox Interpretation: Normal Medical Decision Making Medical Decision Making: Plan: Chemistry AES Crisis Eval XR Right 3rd Digit Impression: Anxiety, polysubstance abuse, third right finger ligament injury. 430p Evaluated by EMBER Aguilar who ricarda Mendoza. Pt stable for dc. Disposition - Disposition Disposition: HOME/ ROUTINE Disposition Time: 16:35 Condition: STABLE Additional Instructions: FOLLOW UP INSTRUCTED BY [employer] OPERATOR Instructions: Anxiety, Adult (DC), Polysubstance Abuse (DC) Forms: [employer] (Telugu) - Clinical Impression Clinical Impression: Anxiety disorder, unspecified - Scribe Statement The provider has reviewed the documentation as recorded by the Scribe (Gwyn Duncan) Provider Attestation: All medical record entries made by the Scribe were at my direction and personally dictated by me. I have reviewed the chart and agree that the record accurately reflects my personal performance of the history, physical exam, medical decision making, and the department course for this patient. I have also personally directed, reviewed, and agree with the discharge instructions and disposition.
--- NOTE | 2018-02-26 14:35 | RAD ---
Chest date of service: 02/26/2018 PROCEDURE: Right middle finger radiographs. HISTORY: injury and deformity COMPARISON: None available. TECHNIQUE: AP radiograph of the right hand, as well as spot oblique and lateral images of right middle finger were obtained. FINDINGS: RIGHT MIDDLE FINGER: Right third digit appears unremarkable without acute displaced fracture. Remainder of the right hand (as seen on the AP view) grossly unremarkable. JOINTS: No dislocation. SOFT TISSUES: Marked soft tissue swelling evident at the 3rd proximal interphalangeal joint. No evidence of radiopaque foreign body. OTHER FINDINGS: None. IMPRESSION: Marked soft tissue swelling noted at the 3rd proximal interphalangeal joint space. No acute displaced fracture.
[2018-02-26 15:03] LABS: BARBITURATES, UR NEGATIVE (NEGATIVE); OPIATES, UR NEGATIVE (NEGATIVE)
[2018-02-26 16:00] LABS: BENZODIAZEPINES, UR POSITIVE (NEGATIVE); PHENCYCLIDINE, UR POSITIVE (NEGATIVE)
[2018-02-26 17:06] VITALS: BP 136/85; PULSE 90; RESP 16; O2SAT 100
== END 2018-02-26 17:08 | disposition home or self-care (01) ==
LOC: C.ER 12:42
DX: F41.9 Anxiety disorder, unspecified (principal)

== ENCOUNTER 2018-02-26 18:08 | Emergency (ER) | payer OTHER ==
[2018-02-26 18:12] VITALS: BMI 24.2
--- NOTE | 2018-02-26 18:42 | C.PDOC ---
History Of Present Illness 32 year old male with a history of polysubstance abuse, seen in this ED and discharged an hour prior to visit, presents to the emergency department reporting that he still feels anxious and "people are after him". Patient states that he was not happy with the crisis evaluation that he received. He states that he wants to be evaluated by someone else. Patient denies suicidal/homicidal ideation and hallucination. Time Seen by Provider: 02/26/18 18:32 Chief Complaint (Nursing): Psychiatric Evaluation History Per: Patient History/Exam Limitations: no limitations Onset/Duration Of Symptoms: Hrs Current Symptoms Are (Timing): Still Present Suicide/Self Injury Attempted (Context): None Modifying Factor(s): Alcohol Associated Symptoms: Anxiety. denies: Suicidal Thoughts, Suicidal Plan Past Medical History Reviewed: Historical Data, Nursing Documentation, Vital Signs - Medical History PMH: Depression, Seizures Denies: Diabetes, Hepatitis, HIV, HTN, Chronic Kidney Disease, Sexually Transmitted Disease Surgical History: No Surg Hx - [facility] Procedures GROUP PSYCHOTHERAPY (12/29/17) INDIVIDUAL PSYCHOTHERAPY, SUPPORTIVE (12/29/17) MEDICATION MANAGEMENT (01/11/18) Family History: States: Unknown Family Hx - Social History Hx Alcohol Use: Yes Hx Substance Use: Yes - Immunization History Hx Tetanus Toxoid Vaccination: No Hx Influenza Vaccination: No Hx Pneumococcal Vaccination: No Review Of Systems Except As Marked, All Systems Reviewed And Found Negative. Psych: Positive for: Anxiety. Negative for: Suicidal ideation Physical Exam - Physical Exam Appears: Other (mild intoxication) Additional Physical Exam Comments: Appears: Non-toxic, No Acute Distress Skin: Warm, Dry Head: Normacephalic, Abrasion (old-appearing superficial abrasions to the face.) Eye(s): bilateral: PERRL, EOMI Nose: Normal Throat: Normal Lymphatic: No Adenopathy Chest: Symmetrical Cardiovascular: Rhythm Regular, No Murmur Respiratory: Normal Breath Sounds, No Rales Gastrointestinal/Abdominal: Soft, No Tenderness Back: Normal Inspection, No Paraspinal Tenderness Extremity: Right third digit in finger splint. Neurological/Psych: Oriented x3, slightly slurred, Normal Cognition, Other (mildly anxious affect.) Gait: Steady Medical Decision Making Medical Decision Making: Impression: Anxiety, polysubstance abuse Patient was already evaluated in this ED and was offered Vistaril for anxiety. Patient is angry that only the same mold loft worker who evaluated him prior is available. Patient walked out of the ED on arrival of mold loft worker. Then returned to his chair a few minutes later. At this time pt has no further need for management in ER. He was already evaluated previously and it was determined he did not need hospitalization. He is exhibiting to be malingering behavior. Stable for discharge. Disposition - Disposition Disposition: HOME/ ROUTINE Disposition Time: 18:33 Condition: STABLE Prescriptions: hydrOXYzine Pamoate [Vistaril] 25 mg PO BID PRN #30 cap PRN Reason: difficulty sleeping or anxiety Instructions: Anxiety, Adult (DC), Polysubstance Abuse (DC) - Clinical Impression Clinical Impression: Anxiety disorder, unspecified, Drug abuse - Scribe Statement The provider has reviewed the documentation as recorded by the Scribe (Gwyn Duncan) Provider Attestation: All medical record entries made by the Scribe were at my direction and pe rsonally dictated by me. I have reviewed the chart and agree that the record accurately reflects my personal performance of the history, physical exam, medical decision making, and the department course for this patient. I have also personally directed, reviewed, and agree with the discharge instructions and disposition.
[2018-02-26 20:26] VITALS: BP 122/86; PULSE 89; RESP 20; O2SAT 100
== END 2018-02-26 19:55 | disposition home or self-care (01) ==
LOC: C.ER 18:08
DX: F41.9 Anxiety disorder, unspecified (principal); F19.10 Other psychoactive substance abuse, uncomplicated